=== PATIENT | female | born 1990 | race African-American/Black ===

== ENCOUNTER 2018-03-29 19:11 | Emergency (ER) | payer MEDICAID ==
[~2018-03-29] VITALS: Ht 162.6 cm; Wt 62.0 kg
[2018-03-29 21:06] LABS: BASOPHILS % 0.9 % (0.0-2.0); EOSINOPHILS % 0.9 % (0.0-5.0); HEMATOCRIT. 25.7 % (36.0-48.0); HEMOGLOBIN. 7.9 g/dL (12.0-16.0); MEAN CORPUSCULAR HEMOGLOBIN 21.6 pg (28.0-32.0); MEAN CORPUSCULAR VOLUME 70.7 fL (81.0-99.0); MONOCYTES % 6.8 % (2.0-8.0); NEUTROPHILS % 69.4 % (40.0-76.0); PLATELET 273 x1000/uL (130-400); RED BLOOD CELL COUNT 3.63 mill/uL (4.2-5.4); RED CELL DISTRIBUTION WIDTH 20.1 % (11.6-14.6)
[2018-03-29 21:10] LABS: CHLORIDE 108 mEq/L (98-107)
[2018-03-29 21:19] LABS: CLARITY URINE CLOUDY (CLEAR); COLOR URINE YELLOW (YELLOW); KETONES URINE TRACE (NEGATIVE); LEUKOCYTE ESTERASE URINE NEGATIVE (NEGATIVE); NITRITE URINE NEGATIVE (NEGATIVE); OCCULT BLOOD URINE 3+ (NEGATIVE); PH URINE 6.5 (4.5-8.0); PROTEIN URINE TRACE (NEGATIVE); SPECIFIC GRAVITY URINE 1.033 (1.005-1.030)
[2018-03-29 22:50] VITALS: BP 114/60
== END 2018-03-29 23:11 | disposition home or self-care (01) ==
LOC: ER 19:11
DX: J06.9 Acute upper respiratory infection, unspecified (principal); D50.0 Iron deficiency anemia secondary to blood loss (chronic); R19.7 Diarrhea, unspecified; R42 Dizziness and giddiness
CPT/HCPCS: 36415; 80048; 81003; 81025; 85025; 99284

== ENCOUNTER 2024-10-13 08:54 | Emergency (ER) | payer MEDICAID ==
[~2024-10-13] VITALS: Ht 162.6 cm; Wt 60.0 kg
[2024-10-13 09:00] VITALS: TEMP 98.6; O2SAT 97
[2024-10-13] MEDS ORDERED: FLUT9.9S BOTHNSTRLS (09:21)
[2024-10-13 09:52] VITALS: BP 130/71; PULSE 97; RESP 20; O2SAT 100
== END 2024-10-13 09:56 | disposition home or self-care (01) ==
LOC: ER 08:54
DX: R09.82 Postnasal drip (principal)
CPT/HCPCS: 71045; 87070; 87430; 99284